=== PATIENT | female | born 1990 | race African-American/Black ===

== ENCOUNTER 2018-04-24 07:13 | Emergency (ER) | payer MEDICAID ==
[~2018-04-24] VITALS: Ht 165.1 cm; Wt 81.6 kg
[2018-04-24 07:25] VITALS: BP 116/80
[2018-04-24 09:57] LABS: Urine Bacteria FEW /hpf (None Seen); Urine Blood Negative /uL (Negative); Urine Mucus FEW (None Seen); Urine Specific Gravity 1.029 (1.001-1.035); Urine WBC 4 /hpf (0 - 5)
[2018-04-24] MEDS ORDERED: PREN27TA7 OR (10:06)
== END 2018-04-24 09:25 | disposition home or self-care (01) ==
LOC: ER 07:13 → LDRP 07:14
PROVIDERS: ADMIT Specialist; ATTEND Specialist
DX: O9A.413 Sexual abuse complicating pregnancy, third trimester (principal); O23.43 Unspecified infection of urinary tract in pregnancy, third trimester; Z3A.32 32 weeks gestation of pregnancy
CPT/HCPCS: 36415; 59025; 76818; 81001; 81002; 84702; 99285; G0378